=== PATIENT | male | born 1975 | race Native Hawaiian/Other Pacific Islander ===

== ENCOUNTER 2022-02-08 15:34 | Emergency (ER) | payer OTHER ==
[~2022-02-08] VITALS: Ht 170.2 cm; Wt 62.6 kg
[2022-02-08 16:24] VITALS: BP 110/69; TEMP 98.2
== END 2022-02-08 17:10 | disposition home or self-care (01) ==
LOC: ED 15:34
DX: L03.116 Cellulitis of left lower limb (principal); W54.0XXA Bitten by dog, initial encounter; Y92.89 Other specified places as the place of occurrence of the external cause
CPT/HCPCS: 99282